=== PATIENT | male | born 1975 | race Caucasian/White ===

== ENCOUNTER 2020-06-24 08:46 | Observation (INO) ==
[2020-06-24] MEDS ORDERED: *HR* LORazepam 2 MG/ML VIAL IVP ONE (09:05)
[2020-06-24 09:15] LABS: Basophils # 0.1 K/mcL (0.0-0.2); Basophils % 0.5 %; Hematocrit 44.1 % (37.5-50.1); Hemoglobin 15.3 g/dL (12.9-16.9); Immature Granulocytes % 0.4 % (0-4); Lymphocytes # 2.2 K/mcL (0.6-4.6); Lymphocytes % 21.7 %; Mean Corpuscular HGB Conc 34.7 g/dL (31.6-35.5); Mean Corpuscular Volume 92.3 fL (83.0-100.0); Mean Platelet Volume 9.7 fL (9.4-12.4); Monocytes # 0.8 K/mcL (0.0-1.3); Monocytes % 7.3 %; Neutrophils # 7.2 K/mcL (1.6-8.9); Platelet Count 289 K/mcL (140-400); Red Blood Count 4.78 M/mcL (4.19-5.50); Red Cell Distribution Width 11.7 % (11.5-14.5); Segmented Neutrophils % 70.1 %; White Blood Count 10.2 K/mcL (4.3-11.1)
[2020-06-24] MEDS ORDERED: diazePAM 5 MG TABLET PO ONE (09:17)
[2020-06-24] MEDS ORDERED: Mag Hydrox/Al Hydrox/Simeth 30 ML UDC PO ONE ×2 (09:18→09:20)
[2020-06-24 09:32] LABS: BUN/Creatinine Ratio 11 (6-26); Blood Urea Nitrogen 10 mg/dL (6-20); Calcium 10.1 mg/dL (8.6-10.3); Carbon Dioxide 18 mEq/L (23-29); Chloride 96 mEq/L (98-107); Glucose 110 mg/dL (70-105); Magnesium 1.7 mg/dL (1.6-2.6); Osmolality,Calculated 280 (280-300); Sodium 135 mEq/L (136-145); eGFR For African Americans > 60 (> 60); eGFR For Non-African Americans > 60 (> 60)
[2020-06-24 09:49] LABS: Ethanol 30 mg/dL (Less than 10)
[2020-06-24 09:50] LABS: Troponin I < 0.03 ng/mL (< 0.04)
[2020-06-24] MEDS ORDERED: Folic Acid 1 MG TABLET PO ONE (10:27)
[2020-06-24] MEDS ORDERED: Vitamin B Complex/Vit C/Vit E 1 EACH TABLET PO ONE (10:27)
[2020-06-24] MEDS ORDERED: diazePAM 10 MG/2 ML SYRINGE IVP PRN ×5 (10:27)
[2020-06-24] MEDS ORDERED: Thiamine (B-1) 100 MG TABLET PO ONE (10:28)
[2020-06-24] MEDS ORDERED: carvediloL 6.25 MG TABLET PO ONE (11:04)
[2020-06-24] MEDS ORDERED: 0.9 % Sodium Chloride 1,000 ML IVC ONE (11:07)
[2020-06-24] MEDS ORDERED: Ondansetron 4 MG/2 ML VIAL IVP PRN (11:39)
[2020-06-24] MEDS ORDERED: Naloxone 0.4 MG/ML INJ IVP PRN (11:39)
[2020-06-24] MEDS ORDERED: *HR* HYDROcodone/Acet 5/325 mg TABLET PO PRN (11:39)
[2020-06-24] MEDS ORDERED: Acetaminophen 325 MG TABLET PO PRN (11:42)
[2020-06-24 12:29] LABS: Amylase 39 Units/L (29-103); Chol/HDL Ratio 3.4 (0-4.9); Cholesterol 188 mg/dL (< 200); HDL Cholesterol 56 mg/dL (40-59); LDL Cholesterol,Calculated 64 mg/dL (< 100); Lipase 49 Units/L (11-82); Triglycerides 342 mg/dL (< 150)
[2020-06-24] MEDS: Pantoprazole 40 MG VIAL IVP SCH (12:31)
[2020-06-24] MEDS ORDERED: Metoclopramide 10 MG/2 ML VIAL IVP ONE (14:45)
[2020-06-24] MEDS: Ringers Solution, Lactated 1,000 ML IVC SCH (14:47)
[2020-06-24] MEDS: *HR* Heparin 5,000 UNIT/ML VIAL SQ SCH ×2 (15:21→22:50)
[2020-06-24 15:56] LABS: Amphetamine Screen,Urine Negative ng/mL (Cutoff=1000); Barbiturate Screen,Urine Negative ng/mL (Cutoff=200); Benzodiazepines Screen,Urine Positive ng/mL (Cutoff=200); Cannabinoid Screen,Urine Negative ng/mL (Cutoff = 50); Cocaine Screen,Urine Negative ng/mL (Cutoff= 300); Opiate Screen,Urine Negative ng/mL (Cutoff=300); Phencyclidine Screen,Urine Negative ng/mL (Cutoff=25)
[2020-06-24] MEDS: carvediloL 6.25 MG TABLET PO SCH (22:50)
[2020-06-25 04:19] LABS: Basophils % 0.5 %; Eosinophils % 0.7 %; Hematocrit 40.7 % (37.5-50.1); Hemoglobin 13.7 g/dL (12.9-16.9); Immature Granulocytes % 0.2 % (0-4); Lymphocytes % 34.9 %; Mean Corpuscular HGB Conc 33.7 g/dL (31.6-35.5); Mean Corpuscular Hemoglobin 31.9 pg (28.0-33.3); Mean Corpuscular Volume 94.7 fL (83.0-100.0); Mean Platelet Volume 10.1 fL (9.4-12.4); Monocytes # 0.6 K/mcL (0.0-1.3); Monocytes % 11.3 %; Platelet Count 201 K/mcL (140-400); Segmented Neutrophils % 52.4 %; White Blood Count 5.7 K/mcL (4.3-11.1)
[2020-06-25 04:40] LABS: Alanine Aminotransferase 30 Units/L (7-52); Albumin 4.3 g/dL (3.5-5.7); Albumin/Globulin Ratio 1.7 (1.1-2.2); Alkaline Phosphatase 82 Units/L (34-104); Aspartate Amino Transferase 32 Units/L (13-39); BUN/Creatinine Ratio 14 (6-26); Blood Urea Nitrogen 12 mg/dL (6-20); Calcium 9.5 mg/dL (8.6-10.3); Carbon Dioxide 22 mEq/L (23-29); Chloride 103 mEq/L (98-107); Globulin 2.5 g/dL (2.4-3.5); Glucose 96 mg/dL (70-105); Magnesium 1.9 mg/dL (1.6-2.6); Osmolality,Calculated 280 (280-300); Phosphorous 3.2 mg/dL (2.7-4.5); Potassium 3.7 mEq/L (3.5-5.1); Sodium 135 mEq/L (136-145); Total Protein 6.8 g/dL (6.4-8.9); eGFR For African Americans > 60 (> 60); eGFR For Non-African Americans > 60 (> 60)
[2020-06-25] MEDS: *HR* Heparin 5,000 UNIT/ML VIAL SQ SCH (05:41)
[2020-06-25] MEDS: Ringers Solution, Lactated 1,000 ML IVC SCH (06:31)
[2020-06-25 09:27] VITALS: BP 149/95
[2020-06-25] MEDS: Pantoprazole 40 MG VIAL IVP SCH (09:27)
[2020-06-25] MEDS: carvediloL 6.25 MG TABLET PO SCH (09:27)
== END 2020-06-25 11:34 | disposition home or self-care (01) ==
LOC: CDU 08:46 → EMEROOARM 08:46 → CDU 12:15
PROVIDERS: ADMIT Internal Medicine; ATTEND Internal Medicine